=== PATIENT | male | born 1955 | race Caucasian/White ===

== ENCOUNTER 2016-05-04 19:22 | Emergency (ER) | payer OTHER ==
[2016-05-04 19:51] VITALS: TEMP 98.1
--- NOTE | 2016-05-04 20:11 | UCPHY ---
H & P Patient Type: Established Chief Complaint Nursing Narrative: states two episodes of pain center of chest today ~ 4pm last 2-3 minutes each . took some advil and maalox and vapor rub . Then at 5ish he had another episode in the shower and drank some hot water and it resolved. Denies n/v Time Seen by Provider: 05/04/16 19:35 HPI/ROS: This patient presents with a chief complaint of chest pain which she 1st noticed this afternoon at 2:30 p.m.. The pain has been variable in intensity in nearly goes away at times only to reoccur. He localizes it to the mid central chest. There is some radiation toward the left side but none to the right side, upper extremities or neck. He has had no associated nausea, vomiting, diaphoresis or shortness of breath. He thinks that pushing on his chest makes worse and he also feels that lying down improves it. He feels generally achy. He says that coughing and moving tends to make it worse but it is not affected by breathing. He has been ill since the 17 of April with cold-type symptoms including congestion, cough, sore throat but no ear pain. He was seen by his primary care physician who prescribed some type of erythromycin which he just finished 4 days ago. He has had no fever at any point in this illness. REVIEW OF SYSTEMS: Constitutional: No fever Eyes: No complaints ENT: Nasal congestion, no sore throat or ear pain at this time Respiratory: Cough, no shortness of breath Cardiac: Chest pain, see above Gastrointestinal: No nausea, vomiting or abdominal pain Genitourinary: Not addressed Musculoskeletal: No lower extremity pain or swelling Skin: No rash Neurological: No headache Source: Patient, RN notes reviewed Exam Limitations: No limitations - Medical/Surgical History Hx Asthma: No Hx Chronic Respiratory Disease: No Hx Diabetes: No Hx Cardiac Disease: No Hx Renal Disease: No Hx Cirrhosis: No Hx Alcoholism: No Hx HIV/AIDS: No Hx Splenectomy or Spleen Trauma: No Other PMH: PCP Pane. Surg None - Family History Significant Family History: No pertinent family hx - Social History Smoking Status: Heavy smoker - Physical Exam Exam: GENERAL: Well-appearing, well-nourished and in no acute distress. HEAD: Atraumatic, normocephalic. EYES: sclera anicteric, conjunctiva are normal. ENT: nares patent, oropharynx clear without exudates. Moist mucous membranes. NECK: Normal range of motion, supple without lymphadenopathy or JVD. No tenderness LUNGS: Breath sounds clear to auscultation bilaterally and equal. No wheezes rales or rhonchi. No chest wall tenderness of significance HEART: Regular rate and rhythm without murmurs, rubs or gallops. ABDOMEN: Soft, nontender, normoactive bowel sounds. No guarding, no rebound. No masses appreciated. EXTREMITIES: Normal range of motion, no pitting or edema. No clubbing or cyanosis. No calf tenderness NEUROLOGICAL: Cranial nerves II through XII grossly intact. Normal speech, normal gait. PSYCH: Normal mood, normal affect. SKIN: Warm, dry, normal turgor, no visible rashes or lesions. Back: No CVA or other tenderness Constitutional: Initial Vital Signs Temperature (C) 36.7 C 05/04/16 19:44 Heart Rate 70 05/04/16 19:44 Respiratory Rate 14 05/04/16 19:44 Blood Pressure 153/73 H 05/04/16 19:44 O2 Sat (%) 93 05/04/16 19:44 O2 Delivery Mode Room Air Allergies/Adverse Reactions: No Known Allergies Allergy (Verified 05/04/16 19:52) Home Medications: Medication Instructions Recorded NK [No Known Home Meds] 05/04/16 Medical Decision Making - Diagnostics EKG Interpretation: An EKG shows no acute changes or anything suggestive of ischemia. Imaging: A chest x-ray is unremarkable and discloses no cause for chest pain. ED Course/Re-evaluation: The patient was monitored throughout his stay in the department and he remained stable in good condition throughout. The pain continued to vary in intensity. At the time of the discharge the patient said that the pain was completely resolved. Differential Diagnosis: .The cause of this patient's pain is unclear but I do not suspect coronary artery syndrome, pneumonia, pneumothorax, pericarditis or aortic dissection. - Data Points Laboratory Results: Laboratory Results 05/04/16 20:30 05/04/16 20:30 05/04/16 20:30 WBC 6.27 10^3/uL (3.80-9.50) RBC 4.78 10^6/uL (4.40-6.38) Hgb 15.8 g/dL (13.7-17.5) Hct 44.6 % (40.0-51.0) MCV 93.3 fL (81.5-99.8) MCH 33.1 pg (27.9-34.1) MCHC 35.4 g/dL (32.4-36.7) RDW 13.1 % (11.5-15.2) Plt Count 187 10^3/uL (150-400) MPV 10.1 fL (8.7-11.7) Neut % (Auto) 52.2 % (39.3-74.2) Lymph % (Auto) 35.1 % (15.0-45.0) Bacon % (Auto) 9.7 % (4.5-13.0) Eos % (Auto) 1.8 % (0.6-7.6) Baso % (Auto) 1.0 % (0.3-1.7) Nucleat RBC Rel Count 0.0 % (0.0-0.2) Absolute Neuts (auto) 3.28 10^3/uL (1.70-6.50) Absolute Lymphs (auto) 2.20 10^3/uL (1.00-3.00) Absolute Monos (auto) 0.61 10^3/uL (0.30-0.80) Absolute Eos (auto) 0.11 10^3/uL (0.03-0.40) Absolute Basos (auto) 0.06 10^3/uL (0.02-0.10) Absolute Nucleated RBC 0.00 10^3/uL (0-0.01) Immature Gran % 0.2 % (0.0-1.1) Immature Gran # 0.01 10^3/uL (0.00-0.10) Sodium 139 mEq/L (134-144) Potassium 4.2 mEq/L (3.5-5.2) Chloride 105 mEq/L (97-110) Carbon Dioxide 27 mEq/l (22-31) Anion Gap 7 mEq/L (8-16) BUN 15 mg/dL (7-23) Creatinine 0.9 mg/dL (0.7-1.3) Estimated GFR > 60 Glucose 95 mg/dL (70-100) Calcium 8.8 mg/dL (8.5-10.4) Total Bilirubin 1.4 mg/dL (0.1-1.4) AST 22 IU/L (17-59) ALT 35 IU/L (21-72) Alkaline Phosphatase 65 IU/L (38-126) Troponin I < 0.012 ng/mL (0-0.034) Total Protein 6.4 g/dL (6.3-8.2) Albumin 3.5 g/dL (3.5-5.0) Departure - Departure Disposition: Home, Routine, Self-Care Clinical Impression: Chest pain Qualifiers: Chest pain type: other chest pain Qualifier Code: (R07.89) Other chest pain Acute bronchitis Qualifiers: Bronchitis organism: unspecified organism Qualifier Code: (J20.9) Acute bronchitis, unspecified Condition: Good Instructions: Chest Pain (ED), Acute Bronchitis (ED) Additional Instructions: If this pain continues to reoccur should follow up with your primary care physician. If at any time the pain becomes severe you become nauseated begin vomiting or develops shortness of breath you should be seen right away. Referrals: Lb Smith MD [Primary Care Provider] - As per Instructions - PQRS PQRS Measurement: Not applicable
--- NOTE | 2016-05-04 20:15 | CPEKG ---
Heart Rate: 72 RR Interval: 833 P-R Interval: 172 QRSD Interval: 110 QT Interval: 400 QTC Interval: 438 P [place]: 62 QRS [place]: 33 T Wave [place]: 19 EKG Severity - ABNORMAL ECG - EKG Impression: SINUS RHYTHM EKG Impression: PROBABLE LEFT ATRIAL ABNORMALITY EKG Impression: NONSPECIFIC INTRAVENTRICULAR CONDUCTION DELAY Electronically Signed By: Rod Castro 04-May-2016 20:15:50
[2016-05-04 20:34] LABS: % IMMATURE GRANULYOCYTES 0.2 % (0.0-1.1); ABSOLUTE IMMATURE GRANULOCYTES 0.01 10^3/uL (0.00-0.10); ADD DIFF? NO; ADD MORPH? NO; ADD SCAN? NO; ATYPICAL LYMPHOCYTE FLAG 10 (0-99); FRAGMENT RBC FLAG 0 (0-99); HEMATOCRIT 44.6 % (40.0-51.0); HEMOGLOBIN 15.8 g/dL (13.7-17.5); LEFT SHIFT FLG 0 (0-99); LIPEMIA HEMOLYSIS FLAG 90 (0-99); MEAN CELL HEMOGLOBIN 33.1 pg (27.9-34.1); MEAN CELL HEMOGLOBIN CONCENTR. 35.4 g/dL (32.4-36.7); MEAN CELL VOLUME 93.3 fL (81.5-99.8); MEAN PLATELET VOLUME 10.1 fL (8.7-11.7); PLATELET CLUMPS FLAG 0 (0-99); PLATELET COUNT 187 10^3/uL (150-400); RED BLOOD CELL COUNT 4.78 10^6/uL (4.40-6.38); RED CELL DISTRIBUTION WIDTH 13.1 % (11.5-15.2)
[2016-05-04 20:52] LABS: ALANINE AMINOTRANSFERASE 35 IU/L (21-72); ALBUMIN 3.5 g/dL (3.5-5.0); ALKALINE PHOSPHATASE 65 IU/L (38-126); ANION GAP 7 mEq/L (8-16); ASPARTATE AMINOTRANSFERASE 22 IU/L (17-59); BILIRUBIN,TOTAL 1.4 mg/dL (0.1-1.4); CALCIUM 8.8 mg/dL (8.5-10.4); CARBON DIOXIDE 27 mEq/l (22-31); CHLORIDE 105 mEq/L (97-110); CREATININE 0.9 mg/dL (0.7-1.3); GLOMERULAR FILTRATION RATE > 60; GLUCOSE 95 mg/dL (70-100); POTASSIUM 4.2 mEq/L (3.5-5.2); SODIUM 139 mEq/L (134-144); TOTAL PROTEIN 6.4 g/dL (6.3-8.2)
[2016-05-04 20:57] LABS: TROPONIN I < 0.012 ng/mL (0-0.034)
--- NOTE | 2016-05-04 21:08 | DX ---
Chest, PA and Lateral Views May 04, 2016, 8:30 p.m. Clinical History: 61-year-old male with chest pain since 2:00 p.m. today. Comparison Study: Chest, dated November 24, 2013. Findings: The patient has had a prior ORIF the [id number] right clavicle, stable from before. Ther e is a healed deformity of the right 10th posterior rib. Telemetry monitoring lead lines are noted. T he cardiac and mediastinal silhouette is normal. The appearance of the sternomanubrial junction is un changed. There is no focal infiltrate, atelectasis, pleural effusion, peripheral interstitial edema, or pneumothorax. The patient is slightly rotated to the right. Impression: No acute intrathoracic abnormality.
[2016-05-04 21:40] VITALS: BP 142/94; PULSE 76; RESP 16; O2SAT 96
== END 2016-05-04 21:38 | disposition home or self-care (01) ==
LOC: CED 19:22
DX: R07.89 Other chest pain (principal); J20.9 Acute bronchitis, unspecified; F17.200 Nicotine dependence, unspecified, uncomplicated
CPT/HCPCS: 71020-PO; 80053-PO; 84484-PO; 85025-PO; 93010-PO; 99215-PO; G0463-PO

== ENCOUNTER 2017-01-10 16:15 | Emergency (ER) | payer OTHER | END 2017-01-10 16:27 | disposition left against medical advice (07) | LOC: CED 16:15 | DX: Z53.21 Procedure and treatment not carried out due to patient leaving prior to being seen by health care provider (principal) ==